=== PATIENT | male | born 1995 | race Caucasian/White ===

== ENCOUNTER 2022-02-27 19:14 | Emergency (ER) | payer SELFPAY ==
[~2022-02-27] VITALS: Ht 193 cm; Wt 90.9 kg
[~2022-02-27 19:14] MED LIST: NKDA; NO HOME MEDICATIONS
[2022-02-27 19:19] VITALS: BP 138/98; PULSE 95; TEMP 98.1
== END 2022-02-27 20:54 | disposition home or self-care (01) ==
LOC: COL.ER 19:14
DX: M25.512 Pain in left shoulder (principal); Z28.310 Unvaccinated for COVID-19